=== PATIENT | male | born 1945 | race Native Hawaiian/Other Pacific Islander ===

== ENCOUNTER 2016-08-03 10:46 | Inpatient (IN) | payer BC ==
[2016-08-03] VITALS (10 sets, daily range): BP systolic 91–124; BP diastolic 43–73; TEMP 97.6–99; Ht 179.1 cm; Wt 104.3 kg
[~2016-08-03] VITALS: Ht 179.1 cm; Wt 104.3 kg
[~2016-08-03 10:46] MED LIST: ALLO100T22 PO; BAYER ADVANCED325 MG OR; CLOP75TA2 PO; LISITAB PO; METO50TA63 PO; PEPCID AC20 MG OR; PRAVACHOL20 MG PO
[2016-08-03 11:29] LABS: PLATELET COUNT 201 K/uL (142-355)
[2016-08-03 11:37] LABS: POTASSIUM 4.5 mmol/L (3.6-5.2)
[2016-08-03] MEDS ORDERED: PRAVACHOL80 MG PO (13:08)
[2016-08-03] MEDS ORDERED: PEPCID20 MG OR (13:09)
--- NOTE | 2016-08-03 14:32 | NUR ---
RECEIVED PT FROM ER VIA IN STABLE COND. RECEIVED REPORT FROM BEV DORMAN LPN. LM FROM RAD HERE FOR US.
--- NOTE | 2016-08-03 15:00 | NUR ---
ADMISSION ASSESSMENT DONE. PLACED PT ON ICU MONITORS. V/S STABLE. PT STATES HE RUNS A LOW BP. BP 99/59. PT HAS O2 @ 2L/NC. 20G IV TO LAC WITH NS AT 83ML/HR. WILL CONTINUE TO MONITOR.
--- NOTE | 2016-08-03 17:11 | NUR ---
PT RESTING QUIETLY WITH EYES CLOSED.
--- NOTE | 2016-08-03 21:16 | NUR ---
08/03/162049 NOTIFIED DR. MADSEN OF PATIENT URINE LAB POSTITIVE.RECEIVED NEW ORDER TO GIVE CIPRO 400MG IV EVRY 12 HOURS.CC
--- NOTE | 2016-08-03 23:54 | NUR ---
08/03/16 2354 PT HEART RATE ON MONITOR WENT UP TO 145 PT DENIES PAIN C/O SLIGHT NAUSEA OCCASIONAL HEART RATE BACK DOWN TO 104.CC
[2016-08-04] VITALS (23 sets, daily range): BP systolic 79–155; BP diastolic 40–89; TEMP 97.6–99.8
[2016-08-04 04:58] LABS: PLATELET COUNT 157 K/uL (142-355)
[2016-08-04 06:30] LABS: POTASSIUM 4.5 mmol/L (3.6-5.2)
--- NOTE | 2016-08-04 07:42 | NUR ---
PT'S CALLED FOR UPDATE. PT RESTING QUIETLY WITH EYES CLOSED.
[2016-08-04 08:08] LABS: PARTIAL THROMBOPLASTIN TIME 35.8 SECONDS (24.5-33.6)
--- NOTE | 2016-08-04 09:24 | NUR ---
PT SITTING WATCHING TV. NAD NOTED AT THIS TIME. WILL CONTINUE TO MONITOR.
--- NOTE | 2016-08-04 10:20 | NUR ---
DR. MADSEN HERE TO SEE PT.
--- NOTE | 2016-08-04 10:54 | NUR ---
LM GONZALEZ HERE FOR RENAL US.
--- NOTE | 2016-08-04 11:49 | NUR ---
PT TO NUCLEAR MED FOR VQ SCAN VIA WC IN STABLE COND.
--- NOTE | 2016-08-04 13:39 | NUR ---
PT BACK FROM NUCLEAR MED IN STABLE COND.
--- NOTE | 2016-08-04 14:46 | NUR ---
FAMILY AT BEDSIDE.
--- NOTE | 2016-08-04 16:00 | NUR ---
FAMILY AT BEDSIDE.
--- NOTE | 2016-08-04 16:13 | NUR ---
HR 80-90'S AT THIS TIME. HR OCCAS 100'S. PT DENIES ANY CP OR SOB. WILL CONTINUE TO MONITOR.
--- NOTE | 2016-08-04 18:22 | NUR ---
PT RESTING QUIETLY WITH EYES CLOSED. WILL CONTINUE TO MONITOR.
--- NOTE | 2016-08-04 19:45 | NUR ---
AT PATIENT BEDSIDE FOR ASSESSMENT. PATIENT ASLEEP BUT AWAKE TO VOICE. HOSPICE MUSIC THERAPY,PULSE OX, NIBP, O2 @ 2LPM NC, IV 20GA LEFT AC NS TKO, IV 22 GA LEFT FOREARM NS @ 125 ML/HR. PATIENT TO BEDSIDE AND URINAL. NEEDED. BED IN LOW POSITION, TWO SIDERAILS UP, ALL QUESTIONS ANSWERED. NO ACUTE DISTRESS OR COMPLAINTS AT THIS TIME.
--- NOTE | 2016-08-04 20:33 | NUR ---
PATIENT CALLED BY PHONE AND TALKED TO PATIENT.
--- NOTE | 2016-08-04 21:15 | NUR ---
PATIENT COPLAINS OF A HEADACHE AT THIS TIME.
[2016-08-05] VITALS (22 sets, daily range): BP systolic 89–138; BP diastolic 38–91; TEMP 97.3–98.4
--- NOTE | 2016-08-05 01:30 | NUR ---
PATIENT RESTING, ASLEEP AND AWAKE TO VOICE. NO COMPLAINTS OR ACUTE DISTRESS NOTED.
--- NOTE | 2016-08-05 05:45 | NUR ---
AT PATIENT BEDSIDE FOR LAB DRAW. PATIENT ASLEEP AND AWAKE TO VOICE. NO COMPLAINTS OR ACUTE DISTRESS NOTED.
[2016-08-05 06:13] LABS: PLATELET COUNT 142 K/uL (142-355)
[2016-08-05 06:14] LABS: POTASSIUM 4.5 mmol/L (3.6-5.2)
--- NOTE | 2016-08-05 08:00 | NUR ---
AM ASSESSMENT COMPLETE
--- NOTE | 2016-08-05 09:15 | NUR ---
NOTED INCREASED OF HR 146 (ST). HOSP/NURSE NOTIFIED
--- NOTE | 2016-08-05 10:17 | NUR ---
FAMILY AT BS
--- NOTE | 2016-08-05 10:30 | NUR ---
PT STANDING AT BS TO VOID, TOLERATED WELL
--- NOTE | 2016-08-05 14:25 | NUR ---
PT IN A-FLUTTER, EKG DONE.
--- NOTE | 2016-08-05 14:30 | NUR ---
EKG REPORTED TO DR MADSEN. ORDER RECIEVED TO REPEAT MAG LEVEL
--- NOTE | 2016-08-05 14:56 | NUR ---
PT CONVERTED INTO NSR, HR 75
--- NOTE | 2016-08-05 15:30 | NUR ---
PT WILL REMAIN IN ICU AT THIS TIME
--- NOTE | 2016-08-05 17:21 | NUR ---
ASSISTED PT UP INTO CHAIR. PT STATES THAT HE FEELS A LITTLE SICK TO HIS STOMACH, HE THINKS IT MAY BE WHAT HE ATE TODAY. PT WAS ASKED IF HE NEEDED SOMETHING FOR [place], HE STATED "YES".
--- NOTE | 2016-08-05 19:15 | NUR ---
ASSITED PT BACK TO BED
--- NOTE | 2016-08-05 20:14 | NUR ---
Received pt resting in bed quietly. No distress noted. VSS per monitor. Pt alert and oriented. Denies pain. Assessment completed. Bed in lowest position. Call light within reach. Will continue to monitor.
[2016-08-06] VITALS (13 sets, daily range): BP systolic 91–129; BP diastolic 40–84; TEMP 98–98.5
--- NOTE | 2016-08-06 01:30 | NUR ---
PATIENT SLEEPING AND AWAKE TO VOICE. NO COMPLAINTS OR ACUTE DISTRESS NOTED. WILL COMTINUE TO MONITOR.
--- NOTE | 2016-08-06 05:50 | NUR ---
AT PATIENTS BEDSIDE FOR LAB DRAWS. PATIENT ALERT TO VOICE. NO ACUTE DISTRESS OR COMPLAINTS.
[2016-08-06 06:45] LABS: PLATELET COUNT 163 K/uL (142-355)
[2016-08-06 06:56] LABS: POTASSIUM 4.4 mmol/L (3.6-5.2)
--- NOTE | 2016-08-06 07:50 | NUR ---
PT HAVING ABNORNAL ECG RHYTHM, EKG DONE.
--- NOTE | 2016-08-06 11:48 | NUR ---
DR MADSEN AT BS
--- NOTE | 2016-08-06 13:15 | NUR ---
D/C INSTRUCTIONS GIVEN TO PATIENT. RX ATTACHED TO INSTRUCTIONS. L FA 20G D/C'D CATH TIP INTACT. PT AWAITING TO COME BRING CLOTHES AND TRANSPORT HOME.
--- NOTE | 2016-08-06 13:55 | NUR ---
PT D/C VIA W/C WITH .
== END 2016-08-06 13:54 | disposition home or self-care (01) | DRG 204 ==
LOC: ED 10:46 → ICU 13:00
PROVIDERS: Emergency Medicine
DX: R06.09 Other forms of dyspnea (principal); N18.4 Chronic kidney disease, stage 4 (severe); I48.92 Unspecified atrial flutter; N39.0 Urinary tract infection, site not specified; R00.8 Other abnormalities of heart beat; D64.89 Other specified anemias; K21.9 Gastro-esophageal reflux disease without esophagitis; R35.8 Other polyuria; B96.29 Other Escherichia coli [E. coli] as the cause of diseases classified elsewhere
CPT/HCPCS: 36415; 80048; 80053; 81000; 82550; 82570; 83735; 84300; 84484; 84540; 85027; 85379; 85610; 85730; 87077; 87086; 87088; 87186; 93005; 96360; 96372; 99284; A9540; A9567; J0744; J1650; J2405; J3475

== ENCOUNTER 2016-08-12 08:30 | Outpatient (CLI) | payer BC ==
[~2016-08-12 08:30] MED LIST changes: +PEPCID20 MG OR; +PRAVACHOL80 MG PO
== END 2016-08-12 09:30 | disposition home or self-care (01) ==
LOC: LABW 08:30
PROVIDERS: Nurse Practitioner Adult Health
DX: E78.2 Mixed hyperlipidemia (principal); Z79.899 Other long term (current) drug therapy; Z51.81 Encounter for therapeutic drug level monitoring
CPT/HCPCS: 36415; 80061; 80076

== ENCOUNTER 2016-09-16 07:27 | Outpatient (CLI) | payer BC | END 2016-09-16 08:30 | disposition home or self-care (01) | LOC: LABW 07:27 | PROVIDERS: Nurse Practitioner Adult Health | DX: E78.2 Mixed hyperlipidemia (principal); Z79.899 Other long term (current) drug therapy; Z51.81 Encounter for therapeutic drug level monitoring | CPT/HCPCS: 36415; 80061; 80076 ==

== ENCOUNTER 2016-11-22 07:33 | Outpatient (CLI) | payer BC | END 2016-11-22 19:02 | disposition home or self-care (01) | LOC: LABW 07:33 | PROVIDERS: Nurse Practitioner Adult Health | DX: E78.2 Mixed hyperlipidemia (principal); Z79.899 Other long term (current) drug therapy; Z51.81 Encounter for therapeutic drug level monitoring | CPT/HCPCS: 36415; 80061; 80076 ==

== ENCOUNTER 2017-04-14 07:24 | Outpatient (CLI) | payer BC | END 2017-04-14 19:37 | disposition home or self-care (01) | LOC: LABW 07:24 | PROVIDERS: Nurse Practitioner Adult Health | DX: E78.2 Mixed hyperlipidemia (principal); Z79.899 Other long term (current) drug therapy; Z51.81 Encounter for therapeutic drug level monitoring | CPT/HCPCS: 36415; 80061; 80076 ==

== ENCOUNTER 2017-07-19 07:29 | Outpatient (CLI) | payer BC | END 2017-07-19 19:55 | disposition home or self-care (01) | LOC: LABW 07:29 | PROVIDERS: Nurse Practitioner Adult Health | DX: E78.2 Mixed hyperlipidemia (principal); Z79.899 Other long term (current) drug therapy; Z51.81 Encounter for therapeutic drug level monitoring | CPT/HCPCS: 36415; 80061; 80076 ==

== ENCOUNTER 2017-11-24 08:27 | Outpatient (CLI) | payer BC ==
[2017-11-24 09:02] LABS: PLATELET COUNT 238 K/uL (142-355)
[2017-11-24 09:06] LABS: POTASSIUM 4.5 mmol/L (3.6-5.2)
== END 2017-11-24 19:03 | disposition home or self-care (01) ==
LOC: LABW 08:27
PROVIDERS: Nurse Practitioner Adult Health
DX: R55 Syncope and collapse (principal); I25.10 Atherosclerotic heart disease of native coronary artery without angina pectoris; Z79.899 Other long term (current) drug therapy; I48.92 Unspecified atrial flutter
CPT/HCPCS: 36415; 80048; 84436; 84443; 84479; 85027; 93225

== ENCOUNTER 2018-01-10 07:24 | Outpatient (CLI) | payer BC | END 2018-01-10 19:54 | disposition home or self-care (01) | LOC: LABW 07:24 | PROVIDERS: Nurse Practitioner Adult Health | DX: E78.2 Mixed hyperlipidemia (principal); Z79.899 Other long term (current) drug therapy; I25.10 Atherosclerotic heart disease of native coronary artery without angina pectoris; R73.9 Hyperglycemia, unspecified | CPT/HCPCS: 36415; 80061; 80076; 83036 ==

== ENCOUNTER 2018-04-03 08:21 | Outpatient (CLI) | payer BC | END 2018-04-03 19:39 | disposition home or self-care (01) | LOC: NM 08:21 | DX: I20.9 Angina pectoris, unspecified (principal) | CPT/HCPCS: A9500 ==

== ENCOUNTER 2018-12-11 12:46 | Outpatient (CLI) | payer BC ==
[2018-12-11 13:08] LABS: PLATELET COUNT 237 K/uL (142-355)
[2018-12-11 13:12] LABS: POTASSIUM 4.4 mmol/L (3.6-5.2)
== END 2018-12-11 19:27 | disposition home or self-care (01) ==
LOC: LABW 12:46
PROVIDERS: Internal Medicine Nephrology
DX: N18.2 Chronic kidney disease, stage 2 (mild) (principal); Z79.899 Other long term (current) drug therapy; R53.82 Chronic fatigue, unspecified
CPT/HCPCS: 36415; 80069; 81000; 82570; 82784; 83036; 84155; 85027; 86038; 86160; 86803

== ENCOUNTER 2019-03-22 07:37 | Outpatient (CLI) | payer BC ==
[2019-03-22 07:53] LABS: PLATELET COUNT 229 K/uL (142-355)
[2019-03-22 07:59] LABS: POTASSIUM 4.3 mmol/L (3.6-5.2)
== END 2019-03-22 19:21 | disposition home or self-care (01) ==
LOC: LABW 07:37
PROVIDERS: Internal Medicine Nephrology
DX: N18.2 Chronic kidney disease, stage 2 (mild) (principal)
CPT/HCPCS: 36415; 80069; 81000; 82570; 84155; 85027

== ENCOUNTER 2020-08-04 09:39 | Outpatient (CLI) | payer BC ==
[~2020-08-04] VITALS: Ht 177.8 cm; Wt 102.1 kg
== END 2020-08-04 22:41 | disposition home or self-care (01) ==
LOC: NM 09:39
PROVIDERS: ATTEND Specialist
DX: I25.10 Atherosclerotic heart disease of native coronary artery without angina pectoris (principal)
CPT/HCPCS: A9500; J2785

== ENCOUNTER 2022-03-08 13:52 | Outpatient (CLI) | payer BC | END 2022-03-08 20:37 | disposition home or self-care (01) | LOC: RAD 13:52 | PROVIDERS: ATTEND Internal Medicine | DX: R07.81 Pleurodynia (principal) ==

== ENCOUNTER 2022-07-12 08:32 | Outpatient (CLI) | payer BC ==
[~2022-07-12] VITALS: Ht 177.8 cm; Wt 90.3 kg
== END 2022-07-12 19:56 | disposition home or self-care (01) ==
LOC: NM 08:32
PROVIDERS: ATTEND Nurse Practitioner
DX: I25.10 Atherosclerotic heart disease of native coronary artery without angina pectoris (principal)
CPT/HCPCS: A9500; J2785

== ENCOUNTER 2022-11-10 10:23 | Outpatient (CLI) | payer BC ==
[2022-11-10 10:50] LABS: PLATELET COUNT 224 K/uL (142-355)
[2022-11-10 11:09] LABS: POTASSIUM 4.5 mmol/L (3.6-5.2)
== END 2022-11-10 18:45 | disposition home or self-care (01) ==
LOC: LABW 10:23
PROVIDERS: ATTEND Internal Medicine Nephrology
DX: N18.2 Chronic kidney disease, stage 2 (mild) (principal)
CPT/HCPCS: 36415; 80069; 81002; 82570; 84156; 85027